=== PATIENT | female | born 1995 | race Caucasian/White ===

== ENCOUNTER 2019-02-23 05:37 | Day surgery (SDC) | payer OTHER ==
[2019-02-22 09:30] LABS: BASOPHILS # (AUTO) 0.02 x10^3/uL (0-0.1); BASOPHILS % (AUTO) 0 % (0-1); EOSINOPHILS % (AUTO) 2 % (1-7); LYMPHOCYTES # (AUTO) 1.82 x10^3/uL (1-3.4); LYMPHOCYTES % (AUTO) 32 % (22-44); MD NO; MEAN CORPUSCULAR HEMOGLOBIN 31.9 pg (27.0-34.8); MEAN CORPUSCULAR HGB CONC 34.1 g/dL (32.4-35.8); MEAN CORPUSCULAR VOLUME 93.5 fL (80-100); MEAN PLATELET VOLUME 8.9 fL (7.4-10.4); MONOCYTES # (AUTO) 0.37 x10^3/uL (0.2-0.8); MONOCYTES % (AUTO) 6 % (2-9); NEUTROPHILS # (AUTO) 3.48 x10^3/uL (1.8-6.8); NEUTROPHILS % (AUTO) 60 % (42-75); PLATELET COUNT 318 x10^3/uL (130-400); RED BLOOD COUNT 4.84 x10^6/uL (3.82-5.3); RED CELL DISTRIBUTION WIDTH 12.7 % (9.6-15.2)
[2019-02-22 09:40] LABS: ALBUMIN 3.8 g/dL (3.4-5.0); ANION GAP 9 mmol/L (5-15); CALCIUM 9.1 mg/dL (8.5-10.1); CHLORIDE 104 mmol/L (98-107)
[2019-02-22 09:46] LABS: ALANINE AMINOTRANSFERASE 26 U/L (12-78); ALKALINE PHOSPHATASE 74 U/L (45-117); BILIRUBIN,TOTAL 0.5 mg/dL (0.2-1.0); CREATININE 0.86 mg/dL (0.55-1.02); TOTAL PROTEIN 7.9 g/dL (6.4-8.2)
[~2019-02-23] VITALS: Ht 167.6 cm; Wt 76.0 kg
[~2019-02-23 05:37] MED LIST: SPIR100T4 PO; VALA500T4 PO
[2019-02-23 06:06] VITALS: BP 114/81
[2019-02-23] MEDS ORDERED: LACTATED RINGERS 1,000 ML IV SCH (06:08)
[2019-02-23] MEDS ORDERED: BUPIVACAINE/PF 0.5% ONE (06:25)
[2019-02-23] MEDS ORDERED: VASOPRESSIN 20 UNIT/ML, 1ML ONE (06:25)
[2019-02-23] MEDS ORDERED: THROMBIN 5,000 UNIT VIAL TP ONE (06:25)
[2019-02-23 06:32] LABS: HCG UR SG 1.025 (1.003-1.030)
[2019-02-23] MEDS ORDERED: FENTANYL PF 100 MCG/2ML ONE (06:52)
[2019-02-23] MEDS ORDERED: MIDAZOLAM 1 MG/ML, 2ML ONE (06:52)
[2019-02-23] MEDS ORDERED: CEFAZOLIN 1,000 MG ONE (06:54)
[2019-02-23] MEDS ORDERED: DEXAMETHASONE 4 MG/ML, 1ML ONE (06:54)
[2019-02-23] MEDS ORDERED: ONDANSETRON 2MG/ML, 2ML ONE (06:54)
[2019-02-23] MEDS ORDERED: PROPOFOL 10 MG/ML, 20ML ONE (06:54)
[2019-02-23] MEDS ORDERED: PROPOFOL 50 ML ONE (06:55)
[2019-02-23] MEDS ORDERED: OXYcodone 5 MG/5 ML ORAL.SOL UDC PO PRN (07:00)
[2019-02-23] MEDS ORDERED: ACETAMINOPHEN 325 MG TABLET PO PRN (07:00)
[2019-02-23] MEDS ORDERED: FENTANYL PF 100 MCG/2ML IV PRN (07:00)
[2019-02-23] MEDS ORDERED: ONDANSETRON ODT 8 MG PO PRN (07:00)
[2019-02-23] MEDS ORDERED: ONDANSETRON 2MG/ML, 2ML IV PRN (07:00)
[2019-02-23] MEDS ORDERED: HYDROmorphone 2 MG/ML, 1ML IVPush PRN (07:00)
[2019-02-23] MEDS ORDERED: LORazepam 2 MG/ML, 1ML IVPush PRN (07:00)
[2019-02-23] MEDS ORDERED: PROMETHAZINE 25 MG/ML, 1ML IV PRN (07:00)
[2019-02-23] MEDS ORDERED: PROMETHAZINE 25 MG SUPP PR PRN (07:00)
[2019-02-23] MEDS ORDERED: MEPERIDINE/PF 25MG/ML,1ML IVPush PRN (07:00)
[2019-02-23] MEDS ORDERED: KETOROLAC 30 MG/1 ML ONE (07:31)
== END 2019-02-23 09:03 | disposition home or self-care (01) ==
LOC: OUT 05:37
PROVIDERS: ATTEND Obstetrics & Gynecology
DX: D06.9 Carcinoma in situ of cervix, unspecified (principal); N72 Inflammatory disease of cervix uteri; Z88.1 Allergy status to other antibiotic agents
CPT/HCPCS: 36415; 57522; 80053; 81025; 84703; 85025; 88305; 88307; J0690; J1100; J1885; J2250; J2405; J2704; J3010; J7120